=== PATIENT | female | born 1995 | race Caucasian/White ===

== ENCOUNTER 2022-05-25 14:04 | Outpatient (CLI) | payer MEDICAID, SELFPAY | END 2022-05-25 14:05 | disposition home or self-care (01) | LOC: NFLDREF 14:07 | PROVIDERS: PCP Family Medicine; Visit Provider Registered Nurse | DX: N89.8 Other specified noninflammatory disorders of vagina (principal); R82.90 Unspecified abnormal findings in urine | CPT/HCPCS: 87086 ==